=== PATIENT | male | born 1985 | race Two or more races ===

== ENCOUNTER → 2021-04-07 | Emergency (ER) | payer OTHER ==
[~2021-04-07] VITALS: Ht 170.2 cm; Wt 72.6 kg
== END | disposition home or self-care (01) ==
LOC: ER 15:00
DX: B34.9 Viral infection, unspecified (principal); Z03.818 Encounter for observation for suspected exposure to other biological agents ruled out; R53.81 Other malaise; R09.81 Nasal congestion; R50.9 Fever, unspecified